=== PATIENT | male | born 1985 | race Caucasian/White ===

== ENCOUNTER 2018-09-01 21:01 | Emergency (ER) | payer MEDICAID ==
[~2018-09-01] VITALS: Ht 170.2 cm; Wt 88.5 kg
[2018-09-01 21:11] VITALS: BP 159/96; PULSE 94; RESP 18; Ht 170.2 cm; Wt 88.5 kg
[2018-09-01] MEDS ORDERED: PROM5SYR2 PO (23:39)
[2018-09-01] MEDS ORDERED: MED4DP PO (23:39)
--- NOTE | 2018-09-01 23:41 | ERD ---
ER Documentation Chief Complaint Chief Complaint fever/cough/body aches x 3 days HPI 33-year-old male is here with 3 days of cough fever body aches and chills. He has been taking Motrin at home. No hemoptysis or unplanned weight loss. No vomiting. ROS All systems reviewed and are negative except as per history of present illness. Medications Home Meds Active Scripts Promethazine HCl/Codeine (Prometh-Codein 6.25-10 mg/5 ml) 5 Ml Syrup, 5 ML PO Q8, #120 ML Prov:ZHENG EGAN PA-C 09/01/18 Methylprednisolone* (Medrol* DOSE PACK) 4 Mg/Dose-Pack Tab.ds.pk, 4 MG PO . DIRECTED, #1 PACKET Prov:ZHENG EGAN PA-C 09/01/18 Reported Medications [None] No Conflict Check 04/26/10 Allergies Allergies: Coded Allergies: No Known Allergy (Verified Allergy, Unknown, 04/26/10) PMhx/Soc Medical and Surgical Hx: pt denies Medical Hx, pt denies Surgical Hx History of Surgery: No Anesthesia Reaction: No Hx Neurological Disorder: No Hx Respiratory Disorders: No Hx Cardiac Disorders: No Hx Psychiatric Problems: No Hx Miscellaneous Medical Probl: No Hx Alcohol Use: No Hx Substance Use: No Hx Tobacco Use: No Smoking Status: Never smoker FmHx Family History: No diabetes Physical Exam Vitals Vital Signs Date Temp Pulse Resp B/P (MAP) Pulse Ox O2 O2 Flow FiO2 Time Delivery Rate 09/01/18 99.7 94 18 159/96 98 21:11 (117) Physical Exam INITIAL VITAL SIGNS: Reviewed by me GENERAL: Awake, alert and oriented x 4, well appearing, nontoxic, speaking in full sentences. No acute distress HEAD: Atraumatic NOSE: Normal nose. THROAT: No tonilar erythema or edema. No exudates. Uvula midline. No kissing tonsils. RESPIRATORY: Clear to auscultation bilaterally. Symmetric chest wall rise. No wheezing or rales. No accessory muscle use. CV: Regular rate and rhythm. No murmurs, rubs, or gallops. ABDOMEN: Soft, non-distended. Nontender. Negative [place]. Negative McBurneys point tenderness. No CVA tenderness bilaterally. No guarding. No rebound. Procedures/MDM 33-year-old male presents with flulike symptoms. He is afebrile well-appearing. His lungs are clear. Chest x-ray shows probable small left-sided pleural effusion. Reviewed these findings with Dr. Monk we agree he is suitable for outpatient management. He was discharged with cough syrup and a Medrol Dosepak. Patient counseled regarding my diagnostic impression and care plan. Prior to discharge all questions answered. Pt agrees with treatment plan and understands strict return precautions. Pt is instructed to follow up with primary care provider within 24-48 hours. Precautionary instructions provided including instructions to return to the ER if not improving or for any worsening or changing symptoms or concerns. Departure Diagnosis: Primary Impression: Bronchitis Condition: Stable Patient Instructions: Bronchitis, No Antibiotic (Adult) Additional Instructions: Call your primary care doctor TOMORROW for an appointment during the next 1-2 days.See the doctor sooner or return here if your condition worsens before your appointment time. ZHENG EGAN PA-C Sep 01, 2018 23:41
== END 2018-09-02 | disposition home or self-care (01) ==
LOC: FTE 21:01
DX: J40 Bronchitis, not specified as acute or chronic (principal)
CPT/HCPCS: 71045; Z7502